=== PATIENT | male | born 1995 | race Caucasian/White ===

== ENCOUNTER → 2018-04-11 | Outpatient (CLI) | payer OTHER ==
[~2018-04-11] MED LIST: CONRAY-43 43% 50ML VIAL (Q9960) As Ordered; PROHANCE 279.3MG/ML 5ML VIAL (A9576) As Ordered
== END ==
LOC: M RADPRO 06:17
DX: M75.82 Other shoulder lesions, left shoulder (principal); M25.412 Effusion, left shoulder; M25.512 Pain in left shoulder
CPT/HCPCS: 23350